=== PATIENT | female | born 2000 | race Caucasian/White ===

== ENCOUNTER 2024-12-29 17:49 | Emergency (ER) | payer MEDICAID ==
[~2024-12-29] VITALS: Ht 162.6 cm; Wt 79.0 kg
[2024-12-29 17:59] VITALS: O2SAT 84
[2024-12-29] MEDS ORDERED: DEXAMETHASONE 4MG TABLET PO ONE (18:30)
[2024-12-29] MEDS ORDERED: SUMATRIPTAN SUCCINATE 6MG/0.5ML VIAL SUBCUT ONE (18:30)
[2024-12-29] MEDS ORDERED: DIPHENHYDRAMINE 12.5MG/5ML UDC PO ONE (18:30)
[2024-12-29] MEDS: DEXAMETHASONE 4MG TABLET PO SCH (19:51)
[2024-12-29] MEDS: DIPHENHYDRAMINE 12.5MG/5ML UDC PO SCH (19:51)
[2024-12-29] MEDS: SUMATRIPTAN SUCCINATE 6MG/0.5ML VIAL SUBCUT SCH (19:52)
[2024-12-29] MEDS: PROCHLORPERAZINE MALEATE 10MG TABLET PO ONE (19:52)
[2024-12-29 20:17] LABS: BASOPHILS % 0.6 % (0.0-2.0); EOSINOPHILS % 4.7 % (0.0-5.0); HEMATOCRIT. 33.9 % (36.0-48.0); HEMOGLOBIN. 11.2 g/dL (12.0-16.0); LYMPHOCYTES % 27.6 % (20.0-50.0); MEAN PLATELET VOLUME 8.3 fl (7.4-10.4); MONOCYTES % 10.6 % (2.0-8.0); NEUTROPHILS % 56.5 % (40.0-76.0); PLATELET 260 x1000/uL (130-400); RED BLOOD CELL COUNT 4.40 mill/uL (4.2-5.4); RED CELL DISTRIBUTION WIDTH 13.9 % (11.6-14.6)
[2024-12-29 20:32] LABS: CREATININE 0.8 mg/dL (0.6-1.0); UREA NITROGEN BLOOD 9 mg/dL (9-23)
[2024-12-29 20:45] LABS: HCG SCREEN NEGATIVE
[2024-12-29] MEDS ORDERED: AMOX1TAB16 MT (21:02)
[2024-12-29] MEDS ORDERED: IBUP-1455 MT (21:02)
[2024-12-29] MEDS ORDERED: SUMA100T16 MT (21:02)
[2024-12-29] MEDS ORDERED: SUMA11AE2 BOTHNSTRLS (21:02)
[2024-12-29] MEDS ORDERED: MOME17SP11 BOTHNSTRLS (21:02)
[2024-12-29 21:14] VITALS: BP 124/85; PULSE 76; RESP 14; TEMP 36.8; O2SAT 99
== END 2024-12-29 21:14 | disposition home or self-care (01) ==
LOC: ER 17:49
DX: G43.909 Migraine, unspecified, not intractable, without status migrainosus (principal); J45.909 Unspecified asthma, uncomplicated; J32.9 Chronic sinusitis, unspecified; D64.9 Anemia, unspecified; Z79.899 Other long term (current) drug therapy
CPT/HCPCS: 99285; 70450; 80048; 84703; 85025; 36415; 96372; J8540; Q0164; Q0163; J3030